=== PATIENT | female | born 1965 | race Caucasian/White ===

== ENCOUNTER 2020-04-27 16:37 | Emergency (ER) | payer OTHER ==
[~2020-04-27 16:37] MED LIST: ASPIRIN EC81 MG PO; ATORVASTATIN CA40 MG PO; BUPRENORPHIN-N1 EACH PO; CHANTIX0.5 MG PO; CIPRO500 MG PO; ECOTRIN81 MG PO; FLAGYL500 MG PO; IBUPROFEN800 MG PO; IMDUR ER TAB 3030 MG PO; LIPITOR TAB 2020 MG PO; LOPRESSOR 25 MG25 MG PO; NITROSTAT0.4 MG SL; OMNICEF 300 MG300 MG PO; PRILOSEC20 MG PO; PROTONIX40 MG PO; PROZAC20 MG PO; SUBOXONE 8 MG-1 EACH PO; TEMOVATE60 GM TOP; TESSALON PERLE100 MG PO; ULTRAM50 MG PO; VENTOLIN HFA 66.7 GM INH; ZOFRAN4 MG PO
[2020-04-27 18:02] LABS: HEMOGLOBIN 13.1 gm/dl (12.3-15.3); RED BLOOD COUNT 4.28 M/UL (4.00-5.10); WHITE BLOOD COUNT 10.7 K/UL (4.5-11.0)
[2020-04-27 18:21] LABS: BUN/CREATININE RATIO 22 (0-10)
== END 2020-04-27 19:00 | disposition left against medical advice (07) ==
LOC: ER1 16:37
PROVIDERS: Family Medicine
DX: R10.9 Unspecified abdominal pain (principal); I10 Essential (primary) hypertension; F17.210 Nicotine dependence, cigarettes, uncomplicated
CPT/HCPCS: 80053; 82550; 82553; 83690; 84484; 85025; 93005; 99284; Q9967